=== PATIENT | female | born 1990 | race Caucasian/White ===

== ENCOUNTER 2018-11-09 17:48 | Outpatient (CLI) | payer BC ==
[~2018-11-09] VITALS: Ht 154.9 cm; Wt 93.5 kg
[~2018-11-09 17:48] MED LIST: PRENAT PO
[2018-11-09 18:00] VITALS: BP 110/55; PULSE 89; RESP 18; Ht 154.9 cm; Wt 93.5 kg
--- NOTE | 2018-11-09 19:14 | HP ---
Date/Time of Note Date/Time of Note DATE: 11/09/18 TIME: 19:10 OB - History Hx of Present Free Text/Dictation 28 YO with EDC 12/14/2018 with IUP at 35 weeks reports due irregular mild UCs. she denies vaginal bleeding or LOF per vagina. she reports good FM. NST is category one Care: Good Care Ultrasounds: Normal mid trimester US Obstetrical Complications: None Medical Complications: None Past Family/Social History * Past Medical, Surgical, Family and Obstetric Histories reviewed from chart. OB Admission Exam Vital Signs Vital Signs Vital Signs Date Temp Pulse Resp B/P (MAP) Pulse Ox O2 O2 Flow FiO2 Time Delivery Rate 11/09/18 98.5 89 18 110/55 Room Air 18:00 (73) Physical Exam HEENT: WNL Heart: Rhythm Normal Lungs: Clear, Equal Abdomen: WNL Extremities: Normal Reflexes: Normal Cervical Dilatation: Fingertip Effacement: 25% Station: -3 OB Assessment/Plan Other Assessment: IUP at 35 weeks not in labor Other plan: may be discharged home with PTL precautions ERYN WREN MD Nov 09, 2018 19:14
--- NOTE | 2018-11-10 05:10 | TRIAGE ---
OB Triage Datetime Report Generated by CPN: 11/10/2018 05:10 Datetime: 11/09/2018 19:14 Stage of : OB Triage Datetime: 11/09/2018 18:17 Vaginal Exam Dilatation (cms): 0.5 Effacement (%): 50 Station: -3 Exam By: khemani Vaginal Bleeding: None Cervix, Consistency: Soft Cervix, Position: Posterior Datetime: 11/09/2018 18:03 EGA: 35.0 Datetime: 11/09/2018 17:57 Assessment Type: Triage Maternal Assessment Level of Consciousness: Keenly Alert, Responsive DTR's/Clonus: DTRs 2+; No Clonus Headache: Denies Blurred Vision: No Respiratory Effort: Unlabored; Regular Rhythm; Equal Expansion Breath Sounds, Left: Clear and Equal Breath Sounds, Right: Clear and Equal Nausea/Vomiting: Denies RUQ Epigastric Pain: Denies Lower Extremities Edema: Bilateral Lower Extremities Degree: 1+ Upper Extremities Edema: None Degree: None Facial Edema: None Fall Risk Assessment History of Falling: (0) No Secondary Diagnosis: (0) No Ambulatory Aid: (0) Bedrest/Nurse Assist IV Therapy: (0) No Gait: (0) Normal/Bedrest/Immobile Mental Status: (0) Oriented to Own Ability Fall Score: 0 Fall Risk Score Definition: No Risk: No action required Datetime: 11/09/2018 17:56 EGA: 35.0 Datetime: 11/09/2018 17:55 Time of Arrival: 11/09/2018 17:33 Arrived By: Ambulatory; Wheelchair Arrived From: Home Chief Complaint: PT. HERE C/O UC'S Movement: Present Contractions: Irregular Rupture of Membranes: Denies Vaginal Bleeding: None Vaginal Discharge: Denies Recent Sexual Intercouse: Yes Abdominal Trauma: Not Applicable Patient Complaints: Contractions; Cramping; Back Pain Time Provider Notified: 11/09/2018 18:53 Provider Notified: YASHARPOUR Initial Plan: BPP/EFM/SVE Datetime: 11/09/2018 17:51 Labor Evaluation Monitor Mode: External Heart Rate Monitor Mode: External US
== END 2018-11-09 19:59 | disposition home or self-care (01) ==
LOC: OBT 17:48 → L-D 17:50 → OBT 19:59
PROVIDERS: ATTEND Specialist
DX: O62.9 Abnormality of forces of labor, unspecified (principal); Z3A.35 35 weeks gestation of pregnancy
CPT/HCPCS: 76818; Z7500; G0463

== ENCOUNTER 2018-12-13 12:26 | Inpatient (IN) | payer BC ==
[~2018-12-13] VITALS: Ht 154.9 cm; Wt 90.0 kg
[2018-12-13 12:45] VITALS: Ht 154.9 cm; Wt 90.0 kg
[2018-12-13 12:54] VITALS: BP 113/57
[2018-12-13] MEDS ORDERED: IBUPROFEN 600 MG TAB PO PRN (17:00)
[2018-12-13] MEDS ORDERED: CARBOPROST 250 MCG INJ IM PRN (17:00)
[2018-12-13] MEDS ORDERED: METHYLERGONOVINE 0.2 MG INJ IM PRN (17:00)
[2018-12-13] MEDS ORDERED: LIDOCAINE 1% (MPF) 30 ML INJ INJ PRN (17:00)
[2018-12-13] MEDS ORDERED: BUTORPHANOL 2 MG INJ IV PRN ×2 (17:00)
[2018-12-13] MEDS ORDERED: MISOPROSTOL 200 MCG TAB PR PRN (17:00)
[2018-12-13] MEDS ORDERED: OXYTOCIN 30 UNITS/LR 500 ML IV SCH ×2 (17:00)
[2018-12-13] MEDS ORDERED: OXYTOCIN 30 UNITS/LR 500 ML IV PRN (17:00)
[2018-12-13] MEDS ORDERED: AMPICILLIN 2 GM/NS (PMX) 100 ML IV ONE (17:00)
[2018-12-13] MEDS: LACTATED RINGER'S 1,000 ML IV SCH (17:17)
[2018-12-13] MEDS: LACTATED RINGER'S 1,000 ML IV PRN ×2 (19:30→19:38)
--- NOTE | 2018-12-13 19:58 | PREAC ---
Date/Time of Note Date/Time of Note DATE: 12/13/18 TIME: 19:57 Anesthesia Eval and Record Evaluation Time Pre-Procedure Interview DATE: 12/13/18 TIME: 19:57 Age 28 Sex female NPO: 8 hrs Preoperative diagnosis iup at term Planned procedure labor epidural Past Medical History Past Medical History: Includes GI: Obesity Heme: Anemia Surgery & Anesthesia Issues No known issue Meds Anticoagulation: No Beta Maurice within 24 hr: No Reason Beta Maurice not given: Pt. not on B-Maurice Reported Medications Multivit/Min/Fol Ac/Iron/Pren* ( S*) 1 Tab Tab, 1 TAB PO DAILY, TAB 09/28/14 Current Medications Lactated Ringer's 1,000 ml @ 125 mls/hr Q8H IV Last administered on 12/13/18at 17:17; Admin Dose 125 MLS/HR; Start 12/13/18 at 16:53 Ampicillin 50 ml @ 100 mls/hr Q4H IV ; Start 12/13/18 at 20:30 Butorphanol Tartrate (Stadol) 1 mg Q2H PRN IV .PAIN SCALE 1-5; Start 12/13/18 at 17:00 Butorphanol Tartrate (Stadol) 2 mg Q2H PRN IV .PAIN SCALE 6-10; Start 12/13/18 at 17:00 Lidocaine (Xylocaine 1% (Mpf)) 30 ml ONCE PRN INJ .EPISIOTOMY; Start 12/13/18 at 17:00 Oxytocin/Lactated Ringer's 500 ml @ 500 mls/hr ONCE POST IV ; Start 12/13/18 at 17:00 Oxytocin/Lactated Ringer's 500 ml @ 125 mls/hr POST IV ; Start 12/13/18 at 17:00 Ibuprofen (Motrin) 600 mg ONCE PRN PO .PAIN 1-5; Start 12/13/18 at 17:00 Oxytocin/Lactated Ringer's 500 ml @ 0 mls/hr ONCE PRN IV .VAGINAL BLEEDING; Start 12/13/18 at 17:00 Methylergonovine Maleate (Methergine) 0.2 mg ONCE PRN IM .VAGINAL BLEEDING; Start 12/13/18 at 17:00 Carboprost Tromethamine (Hemabate) 250 mcg ONCE PRN IM .VAGINAL BLEEDING; Start 7/16/19 at 17:00 Misoprostol (Cytotec) 1,000 mcg ONCE PRN VT .VAGINAL BLEEDING; Start 12/13/18 at 17:00 Lactated Ringer's 1,000 ml @ 2,000 mls/hr Q30M PRN IV .ANESTHESIA Last admini stered on 12/13/18at 19:38; Admin Dose 2,000 MLS/HR; Start 12/13/18 at 19:16 Meds reviewed: Yes Allergies Coded Allergies: No Known Drug Allergies (Verified Allergy, Unknown, 12/13/18) Allergies Reviewed: Yes Labs/Studies Labs Reviewed: Reviewed by anesthesiologist Result Diagram: 12/13/18 1645 Laboratory Tests 12/13/18 16:45 Blood Bank Test 12/13/18 16:45 Antibody Screen NEGATIVE Blood Type A POSITIVE Rh Immune Globulin Candidate NO test: Positive Pre-procedure Exam Last vitals Vital Signs Date Temp Pulse Resp B/P (MAP) Pulse Ox O2 O2 Flow FiO2 Time Delivery Rate 12/13/18 98.4 80 20 113/57 Room Air 12:54 (75) Airway: Adequate mouth opening, Adequate thyromental dist Mallampati: Mallampati II Teeth: Normal Lung: Normal Heart: Normal ASA Physical Status ASA physical status: 2 Emergency: None Planned Anesthetic Neuraxial: Epidural Planned Pain Management Parenteral pain med Pre-operative Attestations Prior to commencing anesthesia and surgery, the patient was re-evaluated, there was verification of: *The patient's identity *The results of appropriate recent lab work and preoperative vital signs *The above evaluation not changing prior to induction *Anesthetic plan, risk benefits, alternative and complications discussed with patient/family; questions answered; patient/family understands, accepts and wishes to proceed. MONE CASTRO Dec 13, 2018 19:58
[2018-12-13] MEDS ORDERED: NALOXONE (0.4 MG/ML) INJ IV PRN (20:00)
[2018-12-13] MEDS ORDERED: DIPHENHYDRAMINE 50 MG INJ IV PRN (20:00)
[2018-12-13] MEDS ORDERED: FENTAnyl 2MCG/ML-ROPIV 0.2% 100 ML BAG EPI SCH (20:00)
[2018-12-13] MEDS ORDERED: ONDANSETRON 4 MG INJ IV PRN (20:00)
[2018-12-13] MEDS ORDERED: AMPICILLIN 1 GM/NS (PMX) 50 ML IV SCH (20:30)
--- NOTE | 2018-12-13 23:05 | PAC ---
Date/Time of Note Date/Time of Note DATE: 12/13/18 TIME: 23:04 Post-Anesthesia Notes Post-Anesthesia Note Last documented vital signs Vital Signs Date Temp Pulse Resp B/P (MAP) Pulse Ox O2 O2 Flow FiO2 Time Delivery Rate 12/13/18 98.4 80 20 113/57 Room Air 2221 (75) Activity: WNL Respiratory function: WNL Cardiovascular function: WNL Mental status: Baseline Pain reasonably controlled: Yes Hydration appropriate: Yes Nausea/Vomiting absent: Yes MONE CASTRO Dec 13, 2018 23:05
[2018-12-14] MEDS: LACTATED RINGER'S 1,000 ML IV SCH (00:27)
--- NOTE | 2018-12-14 01:26 | HP ---
Date/Time of Note Date/Time of Note DATE: 12/14/18 TIME: 01:23 OB - History Hx of Present Chief Complaint: contractions Estimated Due Date: Dec 14, 2018 : 3 Para: 2 Spontaneous : 0 Therapeutic : 0 Care: Good Care Ultrasounds: Normal mid trimester US Obstetrical Complications: None Medical Complications: None ( ) Past Family/Social History * Past Medical, Surgical, Family and Obstetric Histories reviewed from chart. OB Admission Exam Vital Signs Vital Signs Vital Signs Date Temp Pulse Resp B/P (MAP) Pulse Ox O2 O2 Flow FiO2 Time Delivery Rate 12/13/18 98.4 80 20 113/57 Room Air 12:54 (75) Physical Exam HEENT: WNL Heart: Rhythm Normal Lungs: Clear, Equal Abdomen: WNL Extremities: Normal Reflexes: Normal Cervical Dilatation: 4cm Effacement: 75% Station: -1 Membranes: Intact Heart Rate: 120's Accelerations: Accelerations Present Decelerations: No Decelerations Varibility: Moderate Last 72 hours Lab Results CBC & BMP 12/13/18 16:45 OB Assessment/Plan Reason for admission: active labor Plan: Expectant Management CANDIDA GALINDO MD Dec 14, 2018 01:26
--- NOTE | 2018-12-14 01:29 | LDN ---
Date/Time of Note Date/Time of Note DATE: 12/14/18 TIME: 01:27 Delivery Summary Weeks of Gestation 40 weeks Placenta Delivered: Spontaneously Meconium: none Episiotomy: No Laceration repair: Vaginal laceration repaired with 3-0 chromic. Anesthesia type: Epidural Estimated blood loss: 100 Sponge & Needle done & correct: Yes All needle counts correct: Yes Any foreign bodies felt in the: No Delivery Information Sex Sex: male Apgars 1 Minute: 8 5 Minute: 9 Suctioning Nose & mouth suctioned at em[place]: No Delee suction performed: No Umbilical Cord Umbilical cord with: 3 Vessels Cord presentations: no nuchal cord Cord Blood was obtained: Yes Mother & Baby Disposition Disposition Mom & Baby to Maternity; Good: Yes CANDIDA GALINDO MD Dec 14, 2018 01:29
[2018-12-14 03:25] VITALS: BP 105/55; PULSE 86; RESP 18
[2018-12-14 04:08] VITALS: BP 101/52; PULSE 80; RESP 18
[2018-12-14] MEDS ORDERED: METHYLERGONOVINE 0.2 MG INJ IM PRN (04:30)
[2018-12-14] MEDS ORDERED: HYDROCODONE/APAP (5/325) TAB PO PRN (04:30)
[2018-12-14] MEDS ORDERED: CARBOPROST 250 MCG INJ IM PRN (04:30)
[2018-12-14] MEDS ORDERED: BENZOCAINE 20% 56 ML SPRAY TOP PRN (04:30)
[2018-12-14] MEDS ORDERED: MISOPROSTOL 200 MCG TAB PR PRN (04:30)
[2018-12-14] MEDS ORDERED: DIBUCAINE 1% 30 GM OINT TOP PRN (04:30)
[2018-12-14] MEDS ORDERED: OXYTOCIN 30 UNITS/LR 500 ML IV PRN (04:30)
[2018-12-14] MEDS ORDERED: ACETAMINOPHEN 325 MG TAB PO PRN (04:30)
[2018-12-14] MEDS: IBUPROFEN 600 MG TAB PO SCH ×3 (05:57→18:07)
[2018-12-14] MEDS: WITCH HAZEL/GLYCERIN PAD PR PRN (05:58)
[2018-12-14] MEDS: LACTATED RINGER'S 1,000 ML IV* SCH ×2 (06:03→12:06)
[2018-12-14 08:30] VITALS: BP 105/54; PULSE 79; RESP 18
[2018-12-14] MEDS: SENNA/DOCUSATE NA (8.6MG/50MG) TAB PO SCH ×2 (09:39→21:00)
[2018-12-14 12:38] VITALS: BP 94/52; PULSE 68; RESP 18
[2018-12-14 16:10] VITALS: BP 112/57; PULSE 78; RESP 16
[2018-12-14 20:15] VITALS: BP 97/52; PULSE 64; RESP 18
[2018-12-15] MEDS: IBUPROFEN 600 MG TAB PO SCH ×4 (00:02→17:29)
[2018-12-15] MEDS: LACTATED RINGER'S 1,000 ML IV* SCH (00:43)
[2018-12-15 04:30] VITALS: BP 107/67; PULSE 70; RESP 18
--- NOTE | 2018-12-15 08:01 | DS ---
Date/Time of Note Date/Time of Note DATE: 12/15/18 TIME: 08:00 Obstetrical Discharge Record Final Diagnosis Final Diagnosis: Term delivered Vaginal Delivery Obstetrical Delivery: Spontaneous Complications Augmentation: No Induction: No Rupture of Membranes: No Condition on Discharge Physical Assessment Voiding: Yes Bowel Movement: Yes Breast: Soft, non-tender, Filling Fundus: Firm Abdomen and Incision: soft, not tender Calf Tenderness: No Patient Condition: Good ERYN WREN MD Dec 15, 2018 08:01
[2018-12-15 08:25] VITALS: BP 100/52; PULSE 65; RESP 16
[2018-12-15] MEDS: SENNA/DOCUSATE NA (8.6MG/50MG) TAB PO SCH (09:59)
--- NOTE | 2018-12-15 13:43 | QN ---
Documentation Comment Addendum for History and Physical Past medical history unremarkable CANDIDA GALINDO MD Dec 15, 2018 13:43
[2018-12-15 16:00] VITALS: BP 93/51; PULSE 72; RESP 16
[2018-12-15 20:00] VITALS: BP_SYST 108; BP_SYST 133; BP_DIAS 58; BP_DIAS 76; PULSE 68; PULSE 85; RESP 19
[2018-12-16] MEDS: IBUPROFEN 600 MG TAB PO SCH ×3 (00:01→12:26)
[2018-12-16 04:30] VITALS: BP 99/54; PULSE 74; RESP 18
[2018-12-16 08:00] VITALS: BP 100/53; PULSE 67; RESP 18
[2018-12-16] MEDS ORDERED: DIPHTH/TET/ACEL PERTUSS (ADULT) 0.5 ML VIAL IM* ONE (09:00)
[2018-12-16] MEDS: SENNA/DOCUSATE NA (8.6MG/50MG) TAB PO SCH ×2 (10:07)
[2018-12-16] MEDS: WITCH HAZEL/GLYCERIN PAD PR PRN (13:22)
--- NOTE | 2018-12-17 15:11 | DELSUM ---
Delivery Summary A-C Datetime Report Generated by CPN: 12/17/2018 15:11 DELIVERY PERSONNEL [employer] Operator: Gwendolyn Dumont MATERNAL INFORMATION Delivery Anesthesia: Epidural Medications in Delivery: ampicillin Delivery QBL (ml): 168 Placenta Cultured: No Maternal Complications: Other RN Comments: unknown gbs, decels LABOR SUMMARY EDC: 12/14/2018 00:00 No. Babies in Womb: 1 Attempted: No Labor Anesthesia: Epidural LABOR INFORMATION Reason for Induction: Not Applicable Onset of Labor: 12/13/2018 09:00 Complete Dilatation: 12/14/2018 00:54 Group B Beta Strep: Not Done Antibiotics # of Doses: 2 Antibiotics Time of Last Dose: 12/13/2018 21:16 Steroids Given: None Reason Steroids Not Administered: Not Applicable MEMBRANES Membranes Rupture Method: Spontaneous Rupture of Membranes: 12/13/2018 20:58 Length of Rupture (hr): 4.17 Amniotic Fluid Color: Clear Amniotic Fluid Amount: Moderate Amniotic Fluid Odor: None STAGES OF LABOR Stage 1 hr: 15 Stage 1 min: 54 Stage 2 hr: 0 Stage 2 min: 14 Stage 3 hr: 0 Stage 3 min: 3 Total Time in Labor hr: 16 Total Time in Labor min: 11 VAGINAL DELIVERY Episiotomy: None Laceration Extension: N/A Laceration Type: Vaginal Other Laceration: vaginal laceration Laceration Repair: Yes Initial Vag Sponge Count: 10 Final Vag Sponge Count: 10 Initial Vag Sharps Count: 1 Final Vag Sharps Count: 2 Sponge Count Correct: Yes Sharps Count Correct: Yes BABY A INFORMATION Delivery Date/Time: 12/14/2018 01:08 Method of Delivery: Vaginal Born in Route : No : N/A Forceps: N/A Vacuum Extraction: N/A Shoulder Dystocia : N/A SHOULDER DYSTOCIA BABY A Infant Delivery Date/Time: 12/14/2018 01:08 PRESENTATION/POSITION BABY A Presentation: Cephalic Cephalic Presentation: Vertex Vertex Position: Left Occipital Anterior Breech Presentation: N/A PLACENTA INFORMATION BABY A Placenta Delivery Time : 12/14/2018 01:11 Placenta Method of Delivery: Spontaneous Placenta Status: Delivered SCORES BABY A Heart Rate 1 min: >100 bpm Resp Effort 1 min: Good Cry Reflex Irritability 1 min: Cough/Sneeze/Pulls Away Muscle Tone 1 min: Active Motion Color 1 min: Blue/Pale Resuscitation Effort 1 min: Tactile Stimulation SCORE 1 MIN: 8 Heart Rate 5 min: >100 bpm Resp Effort 5 min: Good Cry Reflex Irritability 5 min: Cough/Sneeze/Pulls Away Muscle Tone 5 min: Active Motion Color 5 min: Body [place], Extremit Blue Resuscitation Effort 5 min: Tactile Stimulation SCORE 5 MIN: 9 INFANT INFORMATION BABY A Gestational Age at Delivery: 40.0 Gestational Status: Full Term- 39- 40.6 Weeks Outcome : Liveborn, with signs of life Condition : Stable Sex: Male IDENTIFICATION/MEDS BABY A ID Band Number: [id number] ID Band Location: Right Leg; Left Arm Sensor Applied: Yes Sensor Number: [id number] Sensor Location : Cord Clamp Vitamin K Given : Not Given Erythromycin Given: Not Given WEIGHT/LENGTH BABY A Infant Birthweight (gm): 3040 Infant Weight (lb): 6 Infant Weight (oz): 11 Length (in): 19.00 Infant Length (cm): 48.26 CORD INFORMATION BABY A No. Cord Vessels: 3 Nuchal Cord : N/A Cord Blood Taken: Yes Infant Suction: Mouth; Nose ASSESSMENT BABY A Infant Complications: Multiple Late Decels; Multiple Variable Decels Physical Findings at Delivery: Within Normal Limits Respirations: Appears Normal Manual Qa Tester/ALS Called : Yes Care By: nicu rt/bigg Transferred To: Remains with Mother
== END 2018-12-16 15:11 | disposition home or self-care (01) | DRG 807 ==
LOC: OBT 12:26 → L-D 12:27 → OBT 16:00 → L-D 16:00 → PP1 12-14 03:16
PROVIDERS: ADMIT Specialist; ATTEND Specialist
PROC: 10E0XZZ Delivery of Products of Conception, External Approach (ICD-10-PCS; principal; 2018-12-14)
PROC: 0UQGXZZ Repair Vagina, External Approach (ICD-10-PCS; 2018-12-14)
DX: O71.4 Obstetric high vaginal laceration alone (principal); O48.0 Post-term pregnancy; Z3A.40 40 weeks gestation of pregnancy; Z37.0 Single live birth
CPT/HCPCS: 62322; 85025; 85610; 85730; 86592; 86850; 86900; 86901; 87340; 99464; G0463; J0290; J2590; J3010; J7120